=== PATIENT | female | born 1995 | race Caucasian/White ===

== ENCOUNTER 2017-05-02 13:22 | Emergency (ER) | payer OTHER ==
[~2017-05-02 13:22] MED LIST: ADVA250A INH; ALBU0.086 INH; ALBU1AER INH; HYDR-3133 PO; LORA10TA7 PO; LORT5TAB PO; MONT10TA2 PO; ZOFR4TAB3 SL
[2017-05-02 13:24] VITALS: BP 141/95; PULSE 108; RESP 28; TEMP 98.8; O2SAT 96
[2017-05-02 13:31] VITALS: RESP 26
--- NOTE | 2017-05-02 14:05 | RADRPT ---
EXAM DATE/TIME: 05/02/2017 13:57 [place] COMPARISON: No previous studies available for comparison. INDICATIONS : Wheezing MEDICAL HISTORY : Asthma SURGICAL HISTORY : None. ENCOUNTER: Initial ACUITY: 1 day PAIN SCORE: 0/10 LOCATION: chest FINDINGS: A single view of the chest demonstrates the lungs to be symmetrically aerated without evidence of mas s, infiltrate or effusion. The cardiomediastinal contours are unremarkable. Osseous structures are intact. CONCLUSION: Normal examination. Pronounced rightward thoracic scoliosis. Mnany Finch MD on May 02, 2017 at 14:03 Board Certified Radiologist. This report was verified electronically.
--- NOTE | 2017-05-02 14:12 | PD ---
HPI Chief Complaint: Respiratory Symptoms Time Seen by Provider: 14:07 Travel History International Travel<30 days: No Contact w/Intl Traveler<30days: No Traveled to known affect area: No History of Present Illness HPI 21 YO F with PMH of asthma presents to the ED for evaluation of "2 or 3 day" history of cold symptoms, sinus congestion, nonproductive cough. She states that she went to the clinic and was prescribed a Z-Bigg which has helped with those symptoms. However she feels as if her asthma has gotten worse over the last few days. She endorses wheezing, increased difficulty with breathing. She 's been treating with albuterol nebulizers hourly with no improvement of symptoms. She denies fever, chills, sinus congestion, rhinorrhea, cough, long periods of immobility, OC use, smoking. PFSH Past Medical History Asthma: Yes Blood Disorders: No Anxiety: No Depression: No Cardiovascular Problems: No Diminished Hearing: No Genitourinary: No Headaches: Yes Musculoskeletal: Yes (SCOLIOSIS) Psychiatric: No Respiratory: Yes Integumentary: Yes (eczema) Immunizations Current: Yes : 0 Para: 0 Social History Alcohol Use: No Tobacco Use: No Substance Use: No Allergies-Medications (Allergen,Severity, Reaction): Coded Allergies: broccoli (Unverified Allergy, Severe, 03/16/17) chicken derived (Unverified Allergy, Severe, 03/16/17) chocolate flavor (Unverified Allergy, Severe, 03/16/17) shrimp (Unverified Allergy, Severe, 03/16/17) soy (Unverified Adverse Reaction, Intermediate, skin abd, 03/16/17) Reported Meds & Prescriptions Reported Meds & Active Scripts Active Prednisone 20 Mg Tab 40 Mg PO DAILY Take 40 mg (2 tablets) daily for 5 days Albuterol Neb (Albuterol Sulfate) 2.5 Mg/3 Ml Neb 2.5 Mg NEB Q4HR NEB PRN Reported Breo Ellipta Inh (Fluticasone/Vilanterol) 100-25 Mcg/Act Inh 1 Puff INH DAILY Use daily at the same time. Singulair (Montelukast Sodium) 10 Mg Tab 10 Mg PO HS Ventolin Hfa 18 GM Inh (Albuterol Sulfate) 90 Mcg/Act Aer 1 Puff INH Q4H PRN Review of Systems Except as stated in HPI: all other systems reviewed are Neg Physical Exam Narrative GENERAL: Well-nourished, well-developed white female in no acute distress. SKIN: Focused skin assessment warm/dry. HEAD: Normocephalic. EYES: No scleral icterus. No injection or drainage. NECK: Supple, trachea midline. No JVD or lymphadenopathy. CARDIOVASCULAR: Regular rate and rhythm without murmurs, gallops, or rubs. RESPIRATORY: Breath sounds coarse, tight, equal bilaterally. Tachypneic Diffuse end expiratory wheezing. Positive accessory muscle use. GASTROINTESTINAL: Abdomen soft, non-tender, nondistended. MUSCULOSKELETAL: No cyanosis, or edema. Hohmann sign negative bilaterally. BACK: Nontender without obvious deformity. No CVA tenderness. Data Data Last Documented VS Vital Signs Date Time Temp Pulse Resp B/P (MAP) Pulse Ox O2 Delivery O2 Flow Rate FiO2 05/02/17 14:54 97 Nasal Cannula 2.00 05/02/17 13:31 26 05/02/17 13:24 98.8 108 Orders Orders Chest, Single Ap (05/02/17 ) Albuterol-Ipratropium Neb (Duoneb Neb) (05/02/17 14:15) Ecg Monitoring (05/02/17 14:12) Oximetry (05/02/17 14:12) Sodium Chloride 0.9% Flush (Ns Flush) (05/02/17 14:15) Prednisone (Deltasone) (05/02/17 14:30) Albuterol-Ipratropium Neb (Duoneb Neb) (05/02/17 15:30) MDM Medical Decision Making Medical Screen Exam Complete: Yes Emergency Medical Condition: Yes Differential Diagnosis Asthma exacerbation versus URI versus pneumonia versus PE versus other Narrative Course 21 YO F with PMH of asthma presents to the ED for evaluation of "2 or 3 day" history of cold symptoms, sinus congestion, nonproductive cough. She states that she went to the clinic and was prescribed a Z-Bigg which has helped with those symptoms. However she feels as if her asthma has gotten worse over the last few days. She endorses wheezing, increased difficulty with breathing. She denies fever, chills, sinus congestion, rhinorrhea, cough. Respiratory rate 26 , O2 saturation 96% on room air on presentation. Physical exam reveals end expiratory wheezing, coarse breath sounds bilaterally. Patient was administered 40 mg prednisone by mouth and duo nebs 3. On recheck she reports improvement of her symptoms but requests another breathing treatment. I cautioned the patient regarding the effects of the medications on her heart, she still pressed for a fourth DuoNeb treatment. This was administered, heart rate 119 on recheck. CXR normal per radiology read. I spent a few minutes counseling the patient on the severity of her asthma, the need to follow-up with a french instructor for PFTs and further evaluation. She is prescribed prednisone 40 mg 5 days. She also requested a refill of albuterol treatments which was provided. She is instructed to take all the prednisone as prescribed , follow up as discussed. The patient and her mother indicated understanding of the discharge instructions and are agreeable with the care plan. The patient is stable and discharged home. Diagnosis Primary Impression: Asthma exacerbation Qualified Codes: J45.41 - Moderate persistent asthma with (acute) exacerbation Referrals: Primary Care Physician Patient Instructions: General Instructions, Moderate and Severe Persistent Asthma (ED) Additional Instructions: Rest, hydrate. Continue taking the Z-Bigg as prescribed. 40 mg prednisone daily 5 days. Follow-up with your primary care provider. Return to the ED for any urgent or emergent medical condition. Med/Other Pt SpecificInfo: Prescription(s) given Scripts Prednisone (Prednisone) 20 Mg Tab 40 MG PO DAILY, #10 TAB 0 Refills Take 40 mg (2 tablets) daily for 5 days Prov: Antonio Herron MD 05/02/17 Albuterol Neb (Albuterol Neb) 2.5 Mg/3 Ml Neb 2.5 MG NEB Q4HR NEB Y for SHORTNESS OF BREATH, #60 NEBULE 0 Refills Prov: Antonio Herron MD 05/02/17 Disposition: 01 DISCHARGE HOME Condition: Stable Jennifer Barajas May 02, 2017 14:12
[2017-05-02] MEDS ORDERED: VENTAER INH (14:14)
[2017-05-02] MEDS ORDERED: FLUT1INH INH (14:14)
[2017-05-02] MEDS ORDERED: MONT10TA2 PO (14:14)
[2017-05-02] MEDS ORDERED: SODIUM CHLORIDE 0.9% FLUSH 10 ML FLUSH IVF PRN (14:15)
[2017-05-02] MEDS ORDERED: DEXAMETHASONE SOD PHOS 4 MG/ML VIAL IVP ONE (14:15)
[2017-05-02] MEDS ORDERED: predniSONE 20 MG TAB PO ONE (14:30)
[2017-05-02] MEDS: RESP: ALBUTEROL 2.5 MG/IPRATROPIUM 0.5 MG NEB (SCH) INH ×2 (14:46→14:47)
[2017-05-02 14:54] VITALS: O2SAT 97
[2017-05-02] MEDS ORDERED: RESP: ALBUTEROL 2.5 MG/IPRATROPIUM 0.5 MG NEB (SCH) INH ONE (15:30)
[2017-05-02] MEDS ORDERED: ALBU0.08 NEB (15:43)
[2017-05-02] MEDS ORDERED: PRED20 PO (15:45)
== END 2017-05-02 16:44 | disposition home or self-care (01) ==
LOC: NEPD 13:22
DX: J45.41 Moderate persistent asthma with (acute) exacerbation (principal)
CPT/HCPCS: 71010; 94640; 94664; 99285; J7512